=== PATIENT | female | born 1975 | race Asian ===

== ENCOUNTER → 2018-03-19 | Outpatient (CLI) | payer OTHER ==
--- NOTE | 2018-03-19 10:23 | RADIOLOGY REPORT (SQ) ---
EXAM DESCRIPTION: [facility] DUPLEX ART/NICHELLE FLOW COMPLETED DATE/TIME: 03/19/2018 10:00 am REASON FOR STUDY: CHRONIC KIDNEY DISEASE, STAGE 3 N18.3 CHRONIC KIDNEY DISEASE, STAGE 3 (MODERATE) M10.9 GOUT, UNSPECIFIED E78.2 MIXED HYPERLIPIDEMIA COMPARISON: None. TECHNIQUE: Realtime and static grayscale images acquired. Selected color Doppler, velocities and spe ctral images recorded. LIMITATIONS: None. FINDINGS: RIGHT KIDNEY: RENAL ARTERY VELOCITIES: 64 cm/sec. Segmental artery velocity 62 cm/sec. RENAL VEIN: Color doppler flow present, patent. VELOCITY RATIO: 1.0. Normal waveforms. KIDNEY: Normal size. Mild dilatation of the renal pelvis. LEFT KIDNEY: RENAL ARTERY VELOCITIES: 39 cm/sec. Segmental artery velocity 50 cm/sec. RENAL VEIN: Color doppler flow present, patent. VELOCITY RATIO: 0.6. Normal waveforms. KIDNEY: Normal size. Mild dilatation of the renal pelvis. BLADDER: Not imaged. OTHER: No other significant finding. IMPRESSION: NO DOPPLER EVIDENCE OF HEMODYNAMICALLY SIGNIFICANT RENAL ARTERY STENOSIS. COMMENT: NORMAL RENAL ARTERY/AORTA VELOCITY RATIO IS LESS THAN OR EQUAL TO 3.5. TECHNICAL DOCUMENTATION: JOB ID: [id number] [email or web address]- All Rights Reserved Reading location - IP/workstation name: [email or web address]
== END ==
LOC: RAD 09:35
PROVIDERS: ATTEND Internal Medicine Nephrology
DX: N18.3 Chronic kidney disease, stage 3 (moderate) (principal); M10.9 Gout, unspecified; E78.2 Mixed hyperlipidemia; N03.9 Chronic nephritic syndrome with unspecified morphologic changes
CPT/HCPCS: 93976

== ENCOUNTER 2020-06-09 06:11 | Day surgery (SDC) | payer OTHER ==
[2020-06-09 07:29] LABS: HEMATOCRIT 33.4 % (36.0-47.0); HEMOGLOBIN 11.2 g/dL (12.0-15.5); MEAN CORPUSCULAR HEMOGLOBIN 27.4 pg (27.0-33.4); MEAN CORPUSCULAR HGB CONC 33.7 g/dL (32.0-36.0); MEAN CORPUSCULAR VOLUME 82 fl (80-97); PLATELET COUNT 250 10^3/uL (150-450); RED CELL DISTRIBUTION WIDTH 15.7 % (11.5-14.0); WHITE BLOOD COUNT 9.8 10^3/uL (4.0-10.5)
[2020-06-09 07:30] LABS: INTERNATIONAL RATION (INR) 0.89; PROTHROMBIN TIME 12.3 SEC (11.4-15.4)
[2020-06-09 07:31] LABS: PARTIAL THROMBOPLASTIN TIME 29.8 SEC (23.5-35.8)
[2020-06-09 07:40] LABS: BLOOD UREA NITROGEN 62 mg/dL (7-20)
[2020-06-09] MEDS ORDERED: MIDAZOLAM 2 MG/2 ML INJ ONE (08:28)
[2020-06-09] MEDS ORDERED: FENTANYL CITRATE INJ/PF 100 MCG/2 ML AMPUL ONE (08:28)
--- NOTE | 2020-06-09 09:22 | RADIOLOGY REPORT (SQ) ---
EXAM DESCRIPTION: CT BIOPSY RENAL; CT NEEDLE PLACEMENT IMAGES COMPLETED DATE/TIME: 06/09/2020 9:03 am REASON FOR STUDY: AKF, RECURRENT/PERSISTANT HEMATURIA WITH OTHER MORPHALOGIC CHANGES; RENAL BIOPSY N 17.9 ACUTE KIDNEY FAILURE, UNSPECIFIED N02.8 RECURRENT AND PERSISTENT HEMATURIA W OTH MORPHOLOGIC C COMPARISON: None. RADIATION DOSE: CT Rad equipment meets quality standard of care and radiation dose reduction techniq ues were employed. CTDIvol: 4.0 - 20.1 mGy. DLP: 569 mGy-cm. mGy. LIMITATIONS: None. PROCEDURE: After obtaining informed consent and explaining the risks and benefits of conscious sedat ion,the patient agreed to the procedure. Preliminary CT scanning to localize the biopsy site was performed. A site was marked on the left kid richmond and time out was performed. Procedure was performed using CT fluoroscopy. Total exposure time: [address] fluoroscopic images were obtained and saved to PACS. IV conscious sedation was administered and physician direction by the registered nurse using 1.0 mill igrams of Versed and 50 micrograms of fentanyl. Physiologic monitoring was provided before, during, a nd after sedation. The total sedation time was 30 minutes. Documentation face to face time, the performing proceduralist, spent monitoring the patient: 15 minut es. After sterile skin prep with ChloraPrep, local lidocaine for skin and deep tissue anesthesia, the lef t kidney was localized. A coaxial 18 gauge needle was used to obtain 4 cores of tissue from the left kidney. The biopsy tract was embolized with Gelfoam. All CT scanners at this facility use dose modulation, iterative reconstruction, and/or weight based d osing when appropriate to reduce radiation dose to as low as reasonably achievable (ALARA). [facility]: Dose Right [facility]: CareDose [facility]: Dose Right [facility]: Teradose 4D [facility]: [facility] FINDINGS: There were no immediate complications. Specimen was carried to cytology on sterile saline gauze and submitted to the printed circuit boards contact printer for processing. Pathology is pending at the time of dict ation. IMPRESSION: CT GUIDED LEFT KIDNEY CORTICAL BIOPSY. COMMENT: Patient medication list reviewed:Yes- Quality ID# [id number]:Eligible professional attests to docu menting in the medical record they obtained, updated, or reviewed the patient's current medications.. TECHNICAL DOCUMENTATION: JOB ID: [id number] Quality ID #[id number]: Final reports for procedures using fluoroscopy that document radiation exposure tobi tino, or exposure time and number of fluorographic images (if radiation exposure indices are not avail able) Quality ID # [id number]: Final reports with documentation of one or more dose reduction techniques (e.g., Au tomated exposure control, adjustment of the mA and/or kV according to patient size, use of iterative reconstruction technique) 2010 [employer]- All Rights Reserved Reading location - IP/workstation name: [email or web address]
--- NOTE | 2020-06-09 09:22 | RADIOLOGY REPORT (SQ) ---
EXAM DESCRIPTION: CT BIOPSY RENAL; CT NEEDLE PLACEMENT IMAGES COMPLETED DATE/TIME: 06/09/2020 9:03 am REASON FOR STUDY: AKF, RECURRENT/PERSISTANT HEMATURIA WITH OTHER MORPHALOGIC CHANGES; RENAL BIOPSY N 17.9 ACUTE KIDNEY FAILURE, UNSPECIFIED N02.8 RECURRENT AND PERSISTENT HEMATURIA W OTH MORPHOLOGIC C COMPARISON: None. RADIATION DOSE: CT Rad equipment meets quality standard of care and radiation dose reduction techniq ues were employed. CTDIvol: 4.0 - 20.1 mGy. DLP: 569 mGy-cm. mGy. LIMITATIONS: None. PROCEDURE: After obtaining informed consent and explaining the risks and benefits of conscious sedat ion,the patient agreed to the procedure. Preliminary CT scanning to localize the biopsy site was performed. A site was marked on the left kid richmond and time out was performed. Procedure was performed using CT fluoroscopy. Total exposure time: [address] fluoroscopic images were obtained and saved to PACS. IV conscious sedation was administered and physician direction by the registered nurse using 1.0 mill igrams of Versed and 50 micrograms of fentanyl. Physiologic monitoring was provided before, during, a nd after sedation. The total sedation time was 30 minutes. Documentation face to face time, the performing proceduralist, spent monitoring the patient: 15 minut es. After sterile skin prep with ChloraPrep, local lidocaine for skin and deep tissue anesthesia, the lef t kidney was localized. A coaxial 18 gauge needle was used to obtain 4 cores of tissue from the left kidney. The biopsy tract was embolized with Gelfoam. All CT scanners at this facility use dose modulation, iterative reconstruction, and/or weight based d osing when appropriate to reduce radiation dose to as low as reasonably achievable (ALARA). [facility]: Dose Right [facility]: CareDose [facility]: Dose Right [facility]: Teradose 4D [facility]: [employer] FINDINGS: There were no immediate complications. Specimen was carried to cytology on sterile saline gauze and submitted to the nursing instructor for processing. Pathology is pending at the time of dict ation. IMPRESSION: CT GUIDED LEFT KIDNEY CORTICAL BIOPSY. COMMENT: Patient medication list reviewed:Yes- Quality ID# [id number]:Eligible professional attests to docu menting in the medical record they obtained, updated, or reviewed the patient's current medications.. TECHNICAL DOCUMENTATION: JOB ID: [id number] Quality ID #[id number]: Final reports for procedures using fluoroscopy that document radiation exposure tobi tino, or exposure time and number of fluorographic images (if radiation exposure indices are not avail able) Quality ID # [id number]: Final reports with documentation of one or more dose reduction techniques (e.g., Au tomated exposure control, adjustment of the mA and/or kV according to patient size, use of iterative reconstruction technique) 2010 [employer]- All Rights Reserved Reading location - IP/workstation name: [email or web address]
[2020-06-09 11:09] VITALS: BP 138/85
== END 2020-06-09 11:00 | disposition home or self-care (01) ==
LOC: RAD 06:11
PROVIDERS: ATTEND Internal Medicine Nephrology
DX: N17.9 Acute kidney failure, unspecified (principal); I12.9 Hypertensive chronic kidney disease with stage 1 through stage 4 chronic kidney disease, or unspecified chronic kidney disease; N18.9 Chronic kidney disease, unspecified
CPT/HCPCS: 36415; 84520; 82565; 85027; 85610; 85730; 88346 ×2; 88348 ×2; 88313 ×2; 77012; 50200; J2250; J3010